=== PATIENT | female | born 1975 | race Caucasian/White ===

== ENCOUNTER 2017-06-21 07:02 | Day surgery (SDC) | payer MEDICAID ==
[2017-06-21] MEDS: SOD CHLORIDE 0.9% 1,000 ML IV (09:45)
[2017-06-21] MEDS: CEFAZOLIN 1 GM/50 ML (PMX) 50 ML IVPB ×2 (10:10→10:30)
[2017-06-21] MEDS: FENTAnyl 50 MCG/ML VIAL (10:20)
[2017-06-21] MEDS: MIDAZOLAM 1 MG/ML 2 ML INJ (10:20)
[2017-06-21] MEDS: LIDOCAINE 1%/EPI 30 ML INJ (10:35)
[2017-06-21] MEDS: SOD CHLORIDE 0.9% 500 ML (10:35)
[2017-06-21] MEDS: HEPARIN 1000 UNITS/ML 10 ML INJ (10:35)
[2017-06-21] MEDS: POLYMYXIN/BACITRACIN 1L IRRIG IRR (10:50)
[2017-06-21] MEDS: HYDROCODONE/APAP (5/325) TAB PO (11:48)
== END 2017-06-21 14:00 | disposition home or self-care (01) ==
LOC: SDS 07:02
DX: C50.911 Malignant neoplasm of unspecified site of right female breast (principal)
CPT/HCPCS: 36561; 76942; 93306

== ENCOUNTER → 2017-08-23 | Outpatient (CLI) | payer MEDICAID | END | disposition home or self-care (01) | LOC: EKG 10:04 | DX: C50.919 Malignant neoplasm of unspecified site of unspecified female breast (principal) | CPT/HCPCS: 93306 ==

== ENCOUNTER → 2017-09-18 | Outpatient (CLI) | payer MEDICAID | END | disposition home or self-care (01) | LOC: EKG 10:19 | DX: C50.919 Malignant neoplasm of unspecified site of unspecified female breast (principal) | CPT/HCPCS: 93306 ==

== ENCOUNTER 2017-10-17 07:36 | Observation (INO) | payer MEDICAID ==
[~2017-10-17 07:36] MED LIST: ATROPINE 1 MG/10 ML SYRINGE IV; CEFAZOLIN 1 GM INJ; DIPHENHYDRAMINE 50 MG INJ IV; EPHEDrine SULFATE 50 MG/5 ML SYG IV; FENTAnyl 50 MCG/ML VIAL IV; HYDROmorphONE (0.2 MG/ML) 10ML SYG IV; LABETALOL HCL 20MG INJ IV; MEPERIDINE 25 MG INJ IV; MIDAZOLAM 1 MG/ML 2 ML INJ IV; OXYCODONE/ACETAMINOPHEN (5/325) TAB PO; SOD CHLORIDE 0.9% 1,000 ML IV; SUCCINYLCHOLINE CHLORIDE 100 MG/5 ML SYG IV; hydrALAzine 20 MG INJ IV; morphine (1 MG/ML) 10ML SYRINGE IV
[2017-10-17] MEDS ORDERED: CEFAZOLIN 2 GM/50 ML (PMX) 50 ML IVPB (08:00)
[2017-10-17] MEDS ORDERED: NEOSTIGMINE 3 MG/3 ML SYRINGE (11:56)
[2017-10-17] MEDS ORDERED: ROCURONIUM 50 MG INJ (11:56)
[2017-10-17] MEDS ORDERED: MIDAZOLAM 1 MG/ML 2 ML INJ (11:56)
[2017-10-17] MEDS ORDERED: GLYCOPYRROLATE 1 MG INJ (11:56)
[2017-10-17] MEDS ORDERED: PROPOFOL 20 ML (11:56)
[2017-10-17] MEDS ORDERED: ONDANSETRON 4 MG INJ (11:56)
[2017-10-17] MEDS ORDERED: LIDOCAINE 2% (SDV) 5 ML INJ (11:56)
[2017-10-17] MEDS ORDERED: FENTAnyl 50 MCG/ML VIAL (11:56)
[2017-10-17] MEDS ORDERED: DEXAMETHASONE 4 MG/ML 1 ML INJ (11:57)
[2017-10-17] MEDS ORDERED: ACETAMINOPHEN 1000MG/100ML IV 100 ML IVPB (14:30)
[2017-10-17] MEDS: ONDANSETRON 4 MG INJ IV ×2 (15:34→17:59)
[2017-10-17] MEDS: HYDROmorphONE (0.2 MG/ML) 10ML SYG IV ×3 (15:35→16:52)
[2017-10-17] MEDS: D5W-0.45 NACL + KCL 20 MEQ 1,000 ML IV (18:15)
[2017-10-17] MEDS: morphine 2 MG INJ IV (18:47)
[2017-10-17] MEDS: OXYCODONE/ACETAMINOPHEN (5/325) TAB PO (21:57)
[2017-10-18] MEDS: D5W-0.45 NACL + KCL 20 MEQ 1,000 ML IV ×3 (01:17→14:26)
[2017-10-18] MEDS: PANTOPRAZOLE (EC) 40 MG TAB PO (05:47)
[2017-10-18 05:57] LABS: ADD MAN DIFF? NO
[2017-10-18 06:03] LABS: BASOPHILS % 0.5 % (0.0-2.0); EOSINOPHILS % 0.2 % (0.0-7.0); HEMATOCRIT 29.1 % (37.0-47.0); HEMOGLOBIN 9.3 g/dl (12.0-16.0); LYMPHOCYTES % 18.1 % (15.0-51.0); MEAN CORPUSCULAR HEMOGLOBIN 31.6 pg (29.0-33.0); MEAN PLATELET VOLUME 10.5 fl (7.4-10.4); MONOCYTE # 0.5 10^3/ul (0.3-0.9); MONOCYTES % 8.7 % (0.0-11.0); NEUTROPHILS % 72.1 % (39.0-77.0); PLATELET COUNT 258 10^3/UL (140-415); RED BLOOD COUNT 2.94 10^6/ul (4.20-5.40); RED CELL DISTRIBUTION WIDTH 15.4 % (11.5-14.5)
[2017-10-18 06:03] LABS: WHITE BLOOD COUNT 5.5 10^3/ul (4.8-10.8)
[2017-10-18 06:38] LABS: ANION GAP 10 (8-16); BLOOD UREA NITROGEN 10 mg/dl (7-20); CALCIUM 8.9 mg/dl (8.4-10.2); CARBON DIOXIDE 28 mmol/L (21-31); CHLORIDE 107 mmol/L (97-110); GLUCOSE 145 mg/dl (70-220); POTASSIUM 4.3 mmol/L (3.5-5.1); SODIUM 141 mmol/L (135-144)
[2017-10-18] MEDS: DOCUSATE SODIUM 100 MG CAP PO (08:41)
[2017-10-18] MEDS: OXYCODONE/ACETAMINOPHEN (5/325) TAB PO (13:51)
[2017-10-18] MEDS: morphine 2 MG INJ IV (16:19)
== END 2017-10-18 17:15 | disposition home or self-care (01) ==
LOC: SDS 07:36 → REC 14:27 → MS2 17:15
DX: C77.3 Secondary and unspecified malignant neoplasm of axilla and upper limb lymph nodes (principal); N60.31 Fibrosclerosis of right breast; N61.0 Mastitis without abscess; Z85.3 Personal history of malignant neoplasm of breast
CPT/HCPCS: 19301; 80048; 85025; 88307; 99217

== ENCOUNTER 2017-10-25 14:15 | Emergency (ER) | payer MEDICAID | END 2017-10-25 18:16 | disposition home or self-care (01) | LOC: FTE 14:15 | DX: G89.18 Other acute postprocedural pain (principal); C50.911 Malignant neoplasm of unspecified site of right female breast | CPT/HCPCS: 99282; Z7502 ==

== ENCOUNTER → 2018-02-28 | Outpatient (CLI) | payer MEDICAID | END | disposition home or self-care (01) | LOC: EKG 08:45 | DX: C50.919 Malignant neoplasm of unspecified site of unspecified female breast (principal) | CPT/HCPCS: 93306 ==

== ENCOUNTER 2018-05-15 14:07 | Emergency (ER) | payer MEDICAID ==
[2018-05-15] MEDS: ACETAMINOPHEN 325 MG TAB PO (15:16)
== END 2018-05-15 18:01 | disposition home or self-care (01) ==
LOC: E/R 14:07
DX: R05 Cough (principal); C50.919 Malignant neoplasm of unspecified site of unspecified female breast; R06.02 Shortness of breath
CPT/HCPCS: 71045; 93005; 99284